=== PATIENT | male | born 1995 | race Caucasian/White ===

== ENCOUNTER 2016-12-16 12:43 | Emergency (ER) | payer MEDICAID ==
[~2016-12-16] VITALS: Ht 180.3 cm; Wt 83.9 kg
[2016-12-16 13:49] VITALS: BP 133/87
[2016-12-16] MEDS ORDERED: Norco 5mg/325mg tab PO ONE (14:15)
[2016-12-16] MEDS ORDERED: NORCO 5-325 TA1 EACH ORAL (15:22)
[2016-12-16] MEDS ORDERED: IBUPROFEN600 MG ORAL (15:22)
[2016-12-16 15:43] VITALS: BP 131/83
[2016-12-16 15:49] VITALS: BP 131/83
--- NOTE | 2016-12-17 11:57 | Diagnostic Imaging Report ---
Indications: Right hand and wrist injury, pain Technique: 3 views right hand, 3 views right wrist. Findings: Comparison: None Is a transverse fracture through the neck of the fifth metacarpal. Distal fragment demonstrates moderate radial ulnar angulation and mild displacement. Overlying soft tissues swollen. No additional Fracture, dislocation, joint space widening , surrounding soft tissue swelling/foreign body/gas, or other acute changes are identified. IMPRESSION: Fifth metacarpal boxer's fracture No other evidence of acute injury of the right hand wrist
--- NOTE | 2016-12-19 14:17 | Emergency Room Report ---
History of Present Illness General Chief Complaint: Upper Extremity Injury Source: Patient Present Illness HPI 21-year-old male presents ED many of right hand pain and swelling. States this morning he was upset and punched a wall. Denies any other injuries. Notes pain swelling to the right hand. Pain as throbbing, 5 out of 10, nonradiating. No other aggravating or relieving factors. Denies any other associated symptoms Allergies: Coded Allergies: No Known Allergies (Unverified , 12/16/16) Patient History Past Medical History: none Past Surgical History: none Pertinent Family History: none Social History: Denies: alcohol use, drug use, smoking Reviewed Nursing Documentation: PMH: Agreed, PSxH: Agreed Nursing Documentation-PMH Past Medical History: No Stated History Review of Systems All Other Systems: negative except mentioned in HPI Physical Exam Vital Signs Date Time Temp Pulse Resp B/P Pulse Ox O2 Delivery O2 Flow Rate FiO2 12/16/16 13:44 97.5 77 16 133/87 100 Room Air Sp02 EP Interpretation: reviewed, normal General Appearance: no apparent distress, alert, GCS 15, non-toxic Head: normocephalic Eyes: bilateral eye PERRL, bilateral eye normal inspection ENT: normal ENT inspection Neck: normal inspection Respiratory: normal inspection Cardiovascular #1: normal inspection Gastrointestinal: normal inspection Rectal: deferred Genitourinary: no CVA tenderness Musculoskeletal: tender - Right fifth finger Neurologic: alert, oriented x3, responsive, motor strength/tone normal, sensory intact, speech normal Psychiatric: normal inspection Skin: normal inspection Lymphatic: normal inspection Procedures Splinting Splinting : Consent: Verbal Hand-Made Type: plaster Splint: ulnar Pre-Proc Neuro Vasc Exam: normal Post-Proc Neuro Vasc Exam: normal Patient Tolerated: Well Complications: None Medical Decision Making Diagnostic Impression: Primary Impression: Boxers fracture Qualified Codes: S62.309A - Unspecified fracture of unspecified metacarpal bone, initial encounter for closed fracture ER Course Hospital Course 21-year-old M presents to ED complaining of RUE pain s/p punched wall Differential diagnoses include: Fracture, dislocation, sprain, contusion Clinical course Patient placed on stretcher. After initial history and physical, I ordered pain medications and Xrays of R hand, wrist Xrays prelim read shows boxers fracture. Placed on ulnar gutter Diagnosis - boxers fracture Stable and discharged to home with prescription for Motrin, [place]. apply ice, keep elevated. Followup with PMD/ortho. Return to ED if symptoms recur or worsen Other X-Ray Diagnostic Results Other X-Ray Diagnostic Results : X-Ray Ordered: R hand, R wrist EP Interpretation: Yes Findings: no dislocation Number of Views: 3 Other Impression Right hand-fifth metacarpal boxer's fracture, no dislocation, positive soft tissue swelling Right wrist-No fracture, no dislocation, no soft tissue swelling Last Vital Signs Date Time Temp Pulse Resp B/P Pulse Ox O2 Delivery O2 Flow Rate FiO2 12/16/16 15:49 97.5 63 16 131/83 100 Room Air Disposition: HOME, SELF-CARE Condition: Stable Scripts Hydrocodone Bit/Acetaminophen 5-325* (NORCO 5-325*) 1 Each Tablet 1 TAB ORAL Q6H Y for For Pain, #10 TAB 0 Refills Prov: RENETTA PACE M.D. 12/16/16 Ibuprofen* (MOTRIN*) 600 Mg Tablet 600 MG ORAL Q8H Y for For Pain, #30 TAB 0 Refills Prov: RENETTA PACE M.D. 12/16/16 Referrals: NOT CHOSEN [facility]Y/,REFERRING (PCP) JEANE BEARDEN Patient Instructions: Boxer's Fracture-Sports[facility] RENETTA PACE M.D. Dec 19, 2016 14:16
== END 2016-12-16 15:50 | disposition home or self-care (01) ==
LOC: EMR 15:01
DX: S62.309A Unspecified fracture of unspecified metacarpal bone, initial encounter for closed fracture (principal); X58.XXXA Exposure to other specified factors, initial encounter; Y93.9 Activity, unspecified; Y92.9 Unspecified place or not applicable
CPT/HCPCS: 29280; 99284